=== PATIENT | female | born 1985 | race Caucasian/White ===

== ENCOUNTER 2019-03-10 07:24 | Emergency (ER) | payer SELFPAY ==
[~2019-03-10] VITALS: Ht 170.2 cm; Wt 102.5 kg
[2019-03-10] MEDS ORDERED: HYDROMORPHONE 1 MG/1 ML DISP.SYRIN ONE (08:00)
[2019-03-10] MEDS ORDERED: ONDANSETRON HCL/PF 4 MG/2 ML VIAL ONE (08:00)
[2019-03-10] MEDS ORDERED: HYDROMORPHONE 1 MG/1 ML DISP.SYRIN IV ONE (08:00)
[2019-03-10] MEDS ORDERED: ONDANSETRON HCL/PF - ER 4 MG/2 ML VIAL IV ONE (08:00)
[2019-03-10 08:48] VITALS: BP 118/78
== END 2019-03-10 08:49 | disposition home or self-care (01) ==
LOC: ER 07:24
DX: M54.5 Low back pain (principal); F17.200 Nicotine dependence, unspecified, uncomplicated; F11.90 Opioid use, unspecified, uncomplicated
CPT/HCPCS: 96374; 96375; 99283; J1170; J2405